=== PATIENT | male | born 1980 | race African-American/Black ===

== ENCOUNTER 2016-09-01 00:51 | Emergency (ER) | payer OTHER ==
--- NOTE | ~2016-09-01 | CR72 ---
[facility] Service of [facility] RADIOLOGY TEXT RESULTS PATIENT: CASSIUS RASHID LOCATION: [facility] : 76 UNIT #: [id number] AGE: [address]: Eloy Ziegler MD SEX: M ORDER DR: [id number] [facility] [address] [place], [place] [address] [id number] MR#: [id number] Acc #: [id number] NAME: CASSIUS RASHID : 1980 SEX: M STUDY DATE/TIME: 09/01/2016 1:21 UNIT: [facility] ROOM: STUDY DESCRIPTION: CR Chest Single View Portable Attending Physician: Eloy Ziegler M.D. Ordering Physician: Ed Doctor [id number] [facility] Primary Care Physician: Primary Care Physician No MEDICAL IMAGING REPORT This report is preliminary unless electronic signature is present EXAM Portable chest INDICATION Chest pain and shortness of air today. PROCEDURE Frontal view chest. COMPARISON None. FINDINGS Mild cardiomegaly. Central vascular prominence. No dense consolidation, pleural fluid or pneumothorax. IMPRESSION Mild cardiomegaly and central pulmonary vascular prominence. No dense consolidation. Dictated by... Alfredito Castelan M.D. THIS IS AN ELECTRONICALLY VERIFIED REPORT Alfredito Castelan M.D. at 09/05/2016 8:30 AM NEETU/lorie TD: 09/01/2016 07:15 JOB #: [id number] MEDICAL IMAGING REPORT Page 1 of 1 COPY
--- NOTE | ~2016-09-01 | EKG ---
PATIENT: CASSIUS RASHID UNIT #: [id number] Ventricular Rate: 69 BPM Atrial Rate: 69 BPM P-R Interval: 182 ms QRS Duration: 76 ms Q-T Interval: 414 ms QTC Calculation(Bezet): 443 ms P [place]: 62 degrees Calculated R [place]: 60 degrees Calculated T [place]: 22 degrees Diagnosis Line: Normal sinus rhythm Diagnosis Line: Normal ECG Diagnosis Line: No previous ECGs available Diagnosis Line: Confirmed by AMANDA ZIEGLER MD ([id number]) on Diagnosis Line: 09/01/2016 7:34:21 AM INTERPRETING MD: TONEY WOMACK
--- NOTE | ~2016-09-01 | CT71 ---
[facility] A Service of [facility] RADIOLOGY TEXT RESULTS PATIENT: CASSIUS RASHID LOCATION: [facility] : 76 UNIT #: [id number] AGE: [address]: Eloy Ziegler MD SEX: M ORDER DR: [id number] [place] [id number] [facility]. [place], [place] [address] [id number] E MR#: [id number] Acc #: [id number] NAME: CASSIUS RASHID : 1980 SEX: M STUDY DATE/TIME: 09/01/2016 2:19 UNIT: [facility] ROOM: STUDY DESCRIPTION: CT Head Wo Contrast Attending Physician: Eloy Ziegler M.D. Ordering Physician: Ander Alcantara M.D. Primary Care Physician: No Primary Care Physician MEDICAL IMAGING REPORT This report is preliminary unless electronic signature is present EXAM CT head without contrast. INDICATIONS Confusion, since yesterday. PROCEDURE Unenhanced CT of the head. This CT exam was performed with one or more of the following radiation dose reduction techniques: Automatic exposure control, adjustment of mA and/or kV according to patient size, and iterative reconstruction. COMPARISON None. FINDINGS No acute hemorrhage, abnormal mass effect, extraaxial fluid collection or hydrocephalus. There is a lobulated mass measuring up to 3.1 cm in the suprasellar region. No significant mass effect. No calvarial fracture. No convincing evidence for an acute or early subacute large territory infarct. IMPRESSION 1. 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 Meningioma could have a similar appearance. This would be best evaluated with MRI of the brain with and without contrast on a non emergent basis. 2. No clearly acute finding. Dictated by... Alfredito Castelan M.D. THIS IS AN ELECTRONICALLY VERIFIED REPORT [facility] A Service of [facility] RADIOLOGY TEXT RESULTS PATIENT: CASSIUS RASHID LOCATION: [facility] : 76 UNIT #: [id number] AGE: [address]: Eloy Ziegler MD SEX: M ORDER DR: Alfredito Castelan M.D. at 09/05/2016 8:30 AM EED/khris TD: 09/01/2016 07:29 JOB #: [id number] MEDICAL IMAGING REPORT Page 1 of 1 COPY
[2016-09-01 03:03] LABS: BASOPHIL# 0.1 X10e3 (0-0.3); BASOPHIL% 0.7 % (0-2.5); EOSINOPHIL# 0.4 X10e3 (0-0.7); EOSINOPHIL% 2.4 % (0.0-7.0); HEMATOCRIT 35.8 % (38.0-50.0); HEMOGLOBIN 11.3 gm/dL (13.0-16.0); LYMPHOCYTE# 4.3 X10e3 (1.0-3.5); LYMPHOCYTE% 25.3 % (17.0-45.0); MEAN CELL VOLUME 85.2 FL (83-96); MEAN CORPUSCULAR HEMOGLOBIN 26.8 PG (28-34); MEAN CORPUSCULAR HGB CONC 31.4 g/dL (30-36); MEAN PLATELET VOLUME 8.6 FL (6.5-11.5); MONOCYTE# 1.8 X10e3 (0-1.0); MONOCYTE% 10.5 % (3.0-12.0); NEUTROPHIL# 10.5 X10e3 (1.5-7.1); NEUTROPHIL% 61.1 % (40-75); PLATELET COUNT 480 X10e3 (140-420); RED CELL DISTRIBUTION WIDTH 12.6 % (11.0-15.5); WHITE BLOOD COUNT 17.2 X10e3 (4.0-10.5)
[2016-09-01 03:05] LABS: DIFF IND YES
[2016-09-01 03:07] LABS: ALKALINE PHOSPHATASE 79 U/L (32-92); ALT (SGPT) 25 U/L (10-40); AST (SGOT) 22 U/L (10-42); BILIRUBIN,TOTAL 0.4 mg/dL (0.2-2.0); BLOOD UREA NITROGEN 10 mg/dL (9-23); BUN/CREATININE RATIO 7.69; CALCIUM SERUM 8.7 mg/dL (8.4-10.2); CARBON DIOXIDE 30 mmol/L (22-31); CHLORIDE 103 mmol/L (100-111); CREATININE SERUM 1.3 mg/dL (0.6-1.4); GLOM FILT RATE Estimated 80.8 mL/min (>60); GLUCOSE FASTING 92 mg/dL (70-110); POTASSIUM 3.8 mmol/L (3.5-5.1); PROTEIN TOTAL SERUM 7.7 g/dL (6.0-8.3); SODIUM 138 mmol/L (135-145)
[2016-09-01 03:11] LABS: BILIRUBIN, DIRECT <0.1 mg/dL (0.0-0.2); BILIRUBIN,INDIRECT 0.3 mg/dL (0.0-0.9)
[2016-09-01 03:11] LABS: POC - CKMB 2.3 ng/mL (0.0-7.9); POC - TROPONIN <0.05 ng/mL (<=0.05)
[2016-09-01 03:46] LABS: PLATELET ESTIMATE INCREASED (NORMAL); STOMATOCYTE PRESENT
[2016-09-01 03:49] LABS: AMPHETAMINE NEG (NEG); BARBITURATES NEG (NEG); BENZODIAZEPINES NEG (NEG); COCAINE NEG (NEG); MARIJUANA NEG (NEG); OPIATES NEG (NEG); TRICYCLIC ANTIDEPRESSANTS NEG (NEG); U METHADONE NEG (NEG)
[2016-09-01 03:52] LABS: PARTIAL THROMBOPLASTIN TIME 30.4 SECONDS (23.5-31.3); PROTHROMBIN TIME (PATIENT) 10.9 SECONDS (10.0-11.7)
[2016-09-01 03:54] LABS: POC - CKMB 2.4 ng/mL (0.0-7.9); POC - TROPONIN <0.05 ng/mL (<=0.05)
[2016-09-01 07:39] LABS: URINE SOURCE CLEAN CATCH
[2016-09-01 07:44] LABS: URINE APPEARANCE TURBID; URINE BILIRUBIN NEG (NEG); URINE BLOOD NEG (NEG); URINE COLOR YELLOW; URINE GLUCOSE NEG (NEG); URINE KETONE TRACE (NEG); URINE LEUKOCYTE ESTERASE NEG (NEG); URINE NITRATE NEG (NEG); URINE PH 5.5 (5-8); URINE PROTEIN 1+ (NEG); URINE SPECIFIC GRAVITY 1.026 (1.003-1.035)
[2016-09-01 07:47] LABS: URBCS1 AUWI 0-2 /[HPF] (0-2); URINE BACTERIA AUWI NEG (NEGATIVE); URINE SQUAMOUS EPITHELIAL CELL OCC /[HPF]
[2016-09-01 07:49] LABS: CULTURE INDICATED? NO
== END 2016-09-01 04:52 | disposition hospice, home (50) ==
LOC: CED 00:51
PROVIDERS: Emergency Medicine
DX: G45.9 Transient cerebral ischemic attack, unspecified (principal); G93.89 Other specified disorders of brain
CPT/HCPCS: 36415; 70450; 71010; 80048; 80076; 80307; 81003; 82553; 82947; 84484; 85025; 85610; 85730; 93005; 99285